=== PATIENT | female | born 1955 | race Caucasian/White ===

== ENCOUNTER 2020-10-19 07:00 | Inpatient (IN) | payer MEDICARE ==
[~2020-10-19] VITALS: Ht 162.6 cm; Wt 73.8 kg
[2021-01-14 15:23] LABS: Basophils # (auto) 0.1 10 ^3/uL (0-0.2); Basophils % (auto) 1.2 % (0.0-2.0); Eosinophils # (auto) 0.2 10 ^3/uL (0-0.8); Eosinophils % (auto) 3.1 % (0.0-7.0); Hematocrit 46.8 % (36.0-46.0); Hemoglobin 15.8 g/dL (12.2-16.2); Lymphocytes # (auto) 1.5 10 ^3/uL (0.4-5.4); Lymphocytes % (auto) 30.8 % (10.0-50.0); Mean Corpuscular Hemoglobin 31.5 pg (28.0-32.0); Mean Corpuscular Hgb Conc. 33.7 g/dL (32.0-36.0); Mean Corpuscular Volume 93.7 fL (80.0-100.0); Monocytes # (auto) 0.4 10 ^3/uL (0-1.3); Monocytes % (auto) 8.1 % (0.0-12.0); Neutrophils # (auto) 2.8 10 ^3/uL (1.6-8.6); Neutrophils % (auto) 56.8 % (37.0-80.0); Platelet Count (auto) 233 10^3/uL (140-450); Red Cell Distribution Width 13.1 % (11.8-14.3)
[2021-01-14 15:40] LABS: Urine Bacteria MOD /hpf (None Seen); Urine Blood 1+ /uL (Negative); Urine Specific Gravity 1.007 (1.001-1.035); Urine WBC 2 /hpf (0 - 5)
[2021-01-14 16:05] LABS: Albumin 3.7 g/dL (3.4-5.0); Calcium 8.7 mg/dL (8.5-10.1); Potassium 4.4 mmol/L (3.5-5.1)
[2021-01-14 16:08] LABS: BUN/Creatinine Ratio 30.8; Bilirubin, Total 0.4 mg/dL (0.2-1.0); Total Protein 7.6 g/dL (6.4-8.2)
[2021-01-14 17:06] LABS: INR 0.97 (0.9-1.15); Partial Thromboplastin Time 28.8 sec (23.0-31.2)
[2021-01-17] MEDS ORDERED: BACL10TA PO (14:26)
[2021-01-17] MEDS ORDERED: ALBU108A14 IN (14:26)
[2021-01-17] MEDS ORDERED: LEVO88TA4 PO (14:26)
[2021-01-17] MEDS ORDERED: ESTR1TAB3 PO (14:26)
[2021-01-17] MEDS ORDERED: DULO60CA PO (14:26)
[2021-01-17] MEDS ORDERED: MELO1TAB73 PO (14:26)
[2021-01-17] MEDS ORDERED: HYDR-4072 PO (14:26)
[2021-01-17] MEDS ORDERED: METO-169 PO (14:26)
[2021-01-17] MEDS ORDERED: GABA300C10 PO (14:26)
[2021-01-18] MEDS ORDERED: VANCOMYCIN HCL 1000 MG VL ONE ×2 (06:58→07:22)
[2021-01-18] MEDS ORDERED: ACETAMINOPHEN IV 100 ML IV ONE (06:58)
[2021-01-18] MEDS ORDERED: CELECOXIB 100 MG CAP ONE (06:58)
[2021-01-18] MEDS ORDERED: PREGABALIN CAPSULE 75 MG CAP PO ONE (07:00)
[2021-01-18] MEDS ORDERED: ACETAMINOPHEN IV 1000 MG/100ML (10MG/ML) IV ONE (07:00)
[2021-01-18] MEDS ORDERED: CELECOXIB 100 MG CAP PO ONE (07:00)
[2021-01-18] MEDS ORDERED: PREGABALIN CAPSULE 75 MG CAP ONE (07:16)
[2021-01-18] MEDS ORDERED: MORPHINE SULF(PF) 0.5MG/ML 10ML VIAL ONE (07:20)
[2021-01-18] MEDS ORDERED: KETOROLAC TROMETH 30 MG/ML 1ML VIAL ONE (07:20)
[2021-01-18] MEDS ORDERED: TRANEXAMIC ACID 20 ML ONE (07:21)
[2021-01-18] MEDS ORDERED: BUPIVACAINE W/ EPINEPH 0.25% INJ 50ML MDV ONE (07:21)
[2021-01-18] MEDS ORDERED: BACITRACIN INJ 50000 UNIT VIAL ONE (07:23)
[2021-01-18] MEDS ORDERED: fentaNYL CITRATE 5 ML ONE (07:27)
[2021-01-18] MEDS ORDERED: MIDAZOLAM HCL 1MG/1ML-2 ML VIAL ONE (07:27)
[2021-01-18] MEDS ORDERED: ROCURONIUM 10MG/ML 10ML VIAL IV ONE (07:28)
[2021-01-18] MEDS ORDERED: PROPOFOL 10 MG/ML 20 ML IV ONE (07:43)
[2021-01-18] MEDS ORDERED: ePHEDrine SULFATE 50 MG/ML AMP IV ONE (07:43)
[2021-01-18] MEDS ORDERED: GLYCOPYRROLATE 0.2 MG/ML 1ML VIAL IV ONE (07:43)
[2021-01-18] MEDS ORDERED: NEOSTIGMINE 1 MG/ML INJ (10mg/10ML VIAL) IV ONE (07:43)
[2021-01-18] MEDS ORDERED: LIDOCAINE 2% (LOCAL ANESTH.) PF 5ml SDV ONE (09:06)
[2021-01-18] MEDS ORDERED: SUCCINYLCHOLINE CHLORIDE 20 MG/ML 10ML VIAL IV ONE (09:38)
[2021-01-18] MEDS: LACTATED RINGER'S 1,000 ML IV SCH ×2 (11:45→21:18)
[2021-01-18] MEDS ORDERED: ALBUTEROL IN PRN (11:45)
[2021-01-18] MEDS ORDERED: NITROGLYCERIN 0.4 MG SL TAB SL PRN (11:45)
[2021-01-18] MEDS ORDERED: MORPHINE SULF INJ 2 MG/ML SYRINGE 1ML IV PRN (11:45)
[2021-01-18] MEDS ORDERED: HYDROmorphone HCL 2 MG/ML VL IV PRN ×2 (11:45)
[2021-01-18] MEDS ORDERED: ONDANSETRON HCL 4 MG/2 ML VIAL IV PRN (11:45)
[2021-01-18] MEDS ORDERED: HYDROmorphone HCL 2 MG/ML VL ONE (11:48)
[2021-01-18] MEDS ORDERED: HYDROmorphone HCL 2 MG/ML VL IV ONE (11:49)
[2021-01-18 13:00] VITALS: BP 126/64
[2021-01-18] MEDS: SODIUM CHLOR 0.9% PF (SALINE LOCK) 10ML VIAL/SYR IV SCH ×2 (13:28→21:19)
[2021-01-18] MEDS: GABAPENTIN 300 MG CAP PO SCH ×2 (13:31→21:19)
[2021-01-18 13:54] VITALS: BP 126/64
[2021-01-18] MEDS ORDERED: HYDROcodone-ACET 10/325MG TAB PO SCH (14:00)
[2021-01-18 14:26] LABS: Albumin 2.9 g/dL (3.4-5.0); Calcium 8.3 mg/dL (8.5-10.1); Potassium 5.3 mmol/L (3.5-5.1)
[2021-01-18 14:29] LABS: BUN/Creatinine Ratio 23.4; Bilirubin, Total 0.4 mg/dL (0.2-1.0)
[2021-01-18 16:28] VITALS: BP 121/68
[2021-01-18] MEDS ORDERED: BACLOFEN 10 MG TAB PO SCH (17:30)
[2021-01-18] MEDS: Meloxicam 7.5 MG TAB PO SCH (17:32)
[2021-01-18] MEDS ORDERED: METOPROLOL SUCCINATE XL 50 MG TAB PO SCH (18:00)
[2021-01-18] MEDS ORDERED: DULoxetine HCL 30 MG CAP PO SCH (18:00)
[2021-01-18] MEDS ORDERED: HYDROcodone-ACET 10/325MG TAB PO PRN (18:00)
[2021-01-18] MEDS ORDERED: VANCOMYCIN 500 MG in D5W 5% 100 ML IV SCH (22:00)
[2021-01-18 22:38] VITALS: BP 101/71
[2021-01-19 05:09] VITALS: BP 101/55
[2021-01-19 05:17] VITALS: BP 101/55
[2021-01-19 05:46] LABS: Basophils # (auto) 0 10 ^3/uL (0-0.2); Basophils % (auto) 0.3 % (0.0-2.0); Eosinophils # (auto) 0.1 10 ^3/uL (0-0.8); Eosinophils % (auto) 1.1 % (0.0-7.0); Hematocrit 37.7 % (36.0-46.0); Lymphocytes # (auto) 1.2 10 ^3/uL (0.4-5.4); Lymphocytes % (auto) 17.7 % (10.0-50.0); Mean Corpuscular Hemoglobin 32.2 pg (28.0-32.0); Mean Corpuscular Hgb Conc. 34.4 g/dL (32.0-36.0); Mean Corpuscular Volume 93.6 fL (80.0-100.0); Monocytes # (auto) 0.6 10 ^3/uL (0-1.3); Monocytes % (auto) 9.4 % (0.0-12.0); Neutrophils # (auto) 4.9 10 ^3/uL (1.6-8.6); Neutrophils % (auto) 71.5 % (37.0-80.0); Platelet Count (auto) 169 10^3/uL (140-450); Red Blood Cells 4.03 10^6/uL (4.0-5.20); Red Cell Distribution Width 13.2 % (11.8-14.3); White Blood Cell 6.8 10^3/uL (4.4-10.8)
[2021-01-19 06:04] LABS: Potassium 4.2 mmol/L (3.5-5.1)
[2021-01-19] MEDS: GABAPENTIN 300 MG CAP PO SCH (06:06)
[2021-01-19] MEDS: SODIUM CHLOR 0.9% PF (SALINE LOCK) 10ML VIAL/SYR IV SCH (06:06)
[2021-01-19 06:08] LABS: BUN/Creatinine Ratio 31.5; Calcium 7.8 mg/dL (8.5-10.1)
[2021-01-19] MEDS ORDERED: ESTRADIOL 1 MG TAB PO SCH (07:00)
[2021-01-19] MEDS ORDERED: LEVOTHYROXINE SODIUM 88 MCG TAB PO SCH (07:00)
[2021-01-19] MEDS: LACTATED RINGER'S 1,000 ML IV SCH (07:45)
[2021-01-19 08:00] VITALS: BP 100/56
[2021-01-19] MEDS: Meloxicam 7.5 MG TAB PO SCH (08:00)
[2021-01-19] MEDS ORDERED: BACLOFEN 10 MG TAB PO SCH (08:00)
[2021-01-19] MEDS ORDERED: ceFAZolin 1GM/50ML 50 ML IV ONE (09:45)
[2021-01-19 11:08] VITALS: BP 126/63
== END 2021-01-19 12:30 | disposition home or self-care (01) | DRG 483 ==
LOC: EDSTATUS 07:00 → OVERFLOW 01-18 06:16 → TELE-WESTW 01-18 12:33
PROVIDERS: ADMIT Orthopaedic Surgery Sports Medicine; ATTEND Orthopaedic Surgery Sports Medicine
PROC: 0RRK00Z Replacement of Left Shoulder Joint with Reverse Ball and Socket Synthetic Substitute, Open Approach (ICD-10-PCS; principal; 2021-01-18 07:43)
DX: M19.012 Primary osteoarthritis, left shoulder (principal); Z20.822 Contact with and (suspected) exposure to COVID-19; Z88.0 Allergy status to penicillin; Z88.8 Allergy status to other drugs, medicaments and biological substances
CPT/HCPCS: 36415; 73020; 80048; 80053; 81001; 85025; 85610; 85730; 86850; 86900; 86901; A4565; G0378; J0131; J0330; J0690; J1885; J2001; J2250; J2704; J7060

== ENCOUNTER → 2023-05-29 | Day surgery (SDC) | payer MEDICARE ==
[2023-05-24 09:28] LABS: Basophils # (auto) 0.1 10 ^3/uL (0-0.2); Eosinophils # (auto) 0.3 10 ^3/uL (0-0.8); Eosinophils % (auto) 4.7 % (0.0-7.0); Hematocrit 49.7 % (36.0-46.0); Hemoglobin 16.4 g/dL (12.2-16.2); Lymphocytes # (auto) 1.4 10 ^3/uL (0.4-5.4); Lymphocytes % (auto) 21.1 % (10.0-50.0); Mean Corpuscular Hemoglobin 30.9 pg (28.0-32.0); Mean Corpuscular Volume 93.7 fL (80.0-100.0); Monocytes # (auto) 0.5 10 ^3/uL (0-1.3); Monocytes % (auto) 7.1 % (0.0-12.0); Neutrophils # (auto) 4.3 10 ^3/uL (1.6-8.6); Neutrophils % (auto) 66.1 % (37.0-80.0); Red Cell Distribution Width 13.3 % (11.8-14.3); White Blood Cell 6.5 10^3/uL (4.4-10.8)
[2023-05-24 09:35] LABS: Urine Bacteria MOD /hpf (None Seen); Urine Blood 1+ /uL (Negative); Urine Mucus FEW (None Seen); Urine Specific Gravity 1.038 (1.001-1.035); Urine WBC 3 /hpf (0 - 5)
[2023-05-24 09:44] LABS: INR 1.02 (0.9-1.15); Partial Thromboplastin Time 29.5 SEC (24.5-34.5)
[2023-05-24 10:06] LABS: Albumin 3.7 g/dL (3.4-5.0); BUN/Creatinine Ratio 25.3 (10.0-20.0); Bilirubin, Total 0.4 mg/dL (0.2-1.0); Calcium 9.4 mg/dL (8.5-10.1); Total Protein 7.4 g/dL (6.4-8.2)
[~2023-05-29] VITALS: Ht 162.6 cm; Wt 80.3 kg
[~2023-05-29] MED LIST: ALBU108A14 IN; BACL10TA PO; BUPIVACAINE HCL 50 ML ONE; DULO60CA41 PO; ESTR0.5T6 PO; HYDR-4072 PO; HYDROmorphone HCL 2 MG/ML VL/or syr IV PRN; LEVO88TA4 PO; LIDOCAINE 2% (LOCAL ANESTH.) PF 5ml SDV ONE; MELO7.5T7 PO; METO-289 PO; MIDAZOLAM HCL 2MG/2ML 2ml VIAL (1mg/ml) ONE; ONDANSETRON HCL 4 MG/2 ML VIAL IV PRN; ONDANSETRON HCL 4 MG/2 ML VIAL ONE; PROPOFOL 10 MG/ML 20 ML IV ONE; ROCURONIUM 10MG/ML 10ML VIAL IV ONE; VANCOMYCIN HCL 1000 MG VL ONE; ceFAZolin 1GM/50ML 100 ML IV ONE; fentaNYL CITRATE 100 MCG/2 ML VL ONE
[2023-05-29 13:20] VITALS: RESP 11; TEMP 97.7; O2SAT 99
[2023-05-29 14:29] VITALS: BP 130/55; PULSE 61; RESP 13; O2SAT 94
== END | disposition home or self-care (01) ==
LOC: SUR 09:33
PROVIDERS: ATTEND Orthopaedic Surgery Sports Medicine
DX: G56.21 Lesion of ulnar nerve, right upper limb (principal); J45.909 Unspecified asthma, uncomplicated; E03.9 Hypothyroidism, unspecified; I49.9 Cardiac arrhythmia, unspecified; Z79.51 Long term (current) use of inhaled steroids; Z88.0 Allergy status to penicillin; Z88.1 Allergy status to other antibiotic agents; Z82.61 Family history of arthritis; Z82.5 Family history of asthma and other chronic lower respiratory diseases; Z83.42 Family history of familial hypercholesterolemia; Z95.0 Presence of cardiac pacemaker; Z82.49 Family history of ischemic heart disease and other diseases of the circulatory system; Z79.890 Hormone replacement therapy; Z87.891 Personal history of nicotine dependence; Z90.710 Acquired absence of both cervix and uterus; Z98.890 Other specified postprocedural states
CPT/HCPCS: 36415; 64718; 80053; 81001; 85025; 85610; 85730; J0690; J1170; J2001; J2250; J2405; J2704; J3010; J3370; J3490

== ENCOUNTER 2023-07-31 06:11 | Inpatient (IN) | payer MEDICARE ==
[2023-07-26 08:49] LABS: Basophils # (auto) 0 10 ^3/uL (0-0.2); Basophils % (auto) 0.9 % (0.0-2.0); Eosinophils # (auto) 0.2 10 ^3/uL (0-0.8); Eosinophils % (auto) 3.2 % (0.0-7.0); Hematocrit 46.5 % (36.0-46.0); Hemoglobin 15.9 g/dL (12.2-16.2); Lymphocytes # (auto) 1.2 10 ^3/uL (0.4-5.4); Lymphocytes % (auto) 21.2 % (10.0-50.0); Mean Corpuscular Hemoglobin 31.5 pg (28.0-32.0); Mean Corpuscular Hgb Conc. 34.2 g/dL (32.0-36.0); Mean Corpuscular Volume 92.1 fL (80.0-100.0); Monocytes # (auto) 0.4 10 ^3/uL (0-1.3); Monocytes % (auto) 6.8 % (0.0-12.0); Neutrophils # (auto) 3.7 10 ^3/uL (1.6-8.6); Neutrophils % (auto) 67.9 % (37.0-80.0); Nucleated Red Blood Cells % 0.1 %; Red Blood Cells 5.05 10^6/uL (4.0-5.20); Red Cell Distribution Width 13.6 % (11.8-14.3); White Blood Cell 5.5 10^3/uL (4.4-10.8)
[2023-07-26 09:05] LABS: INR 1.01 (0.9-1.15); Partial Thromboplastin Time 29.5 SEC (24.5-34.5); Prothrombin Time 10.6 sec (9.3-11.8)
[2023-07-26 09:15] LABS: Urine Bacteria FEW /hpf (None Seen); Urine Blood 1+ /uL (Negative); Urine Clarity HAZY (Clear); Urine Color Yellow (Yellow); Urine Hyaline Cast FEW /lpf (0 - 2); Urine Mucus FEW (None Seen); Urine Protein, UAD 1+ (Negative); Urine Specific Gravity 1.037 (1.001-1.035); Urine WBC 5 /hpf (0 - 5)
[2023-07-26 09:58] LABS: Alanine Aminotransferase 11 U/L (7-40); Albumin 4.2 g/dL (3.2-4.8); Alkaline Phosphatase 68 U/L (46-116); Anion Gap 0 (5-15); Aspartate Aminotransferase 13 U/L (13-40); Calcium 9.1 mg/dL (8.5-10.1); Carbon Dioxide 35 mmol/L (20-30); Chloride 102 mmol/L (98-107); Glucose 88 mg/dL (74-106); Potassium 4.8 mmol/L (3.5-5.1); Sodium 137 mmol/L (136-145)
[2023-07-26 09:59] LABS: BUN/Creatinine Ratio 18.8 (10.0-20.0); Blood Urea Nitrogen 13 mg/dL (9-23); Total Protein 6.7 g/dL (5.7-8.2)
[2023-07-26 10:01] LABS: Bilirubin, Total 0.4 mg/dL (0.2-1.0)
[2023-07-31] VITALS (10 sets, daily range): BP systolic 117–142; BP diastolic 64–79; PULSE 62–77; RESP 12–20; TEMP 96.5–98.2; O2SAT 93–99
[~2023-07-31] VITALS: Ht 162.6 cm; Wt 85.0 kg
[~2023-07-31 06:11] MED LIST changes: -BUPIVACAINE HCL 50 ML ONE; +GABA-1250 PO; -HYDROmorphone HCL 2 MG/ML VL/or syr IV PRN; -LIDOCAINE 2% (LOCAL ANESTH.) PF 5ml SDV ONE; -MIDAZOLAM HCL 2MG/2ML 2ml VIAL (1mg/ml) ONE; -ONDANSETRON HCL 4 MG/2 ML VIAL IV PRN; -ONDANSETRON HCL 4 MG/2 ML VIAL ONE; -PROPOFOL 10 MG/ML 20 ML IV ONE; -ROCURONIUM 10MG/ML 10ML VIAL IV ONE; -VANCOMYCIN HCL 1000 MG VL ONE; -ceFAZolin 1GM/50ML 100 ML IV ONE; -fentaNYL CITRATE 100 MCG/2 ML VL ONE
[2023-07-31] MEDS ORDERED: DexAMETHasone SOD PHOS 4 MG/1ML SDV INJ ONE (06:35)
[2023-07-31] MEDS ORDERED: EPINEPHrine HCL 1 MG/1 ML AMP ONE (06:35)
[2023-07-31] MEDS ORDERED: BUPIVACAINE HCL 50 ML ONE (06:35)
[2023-07-31] MEDS ORDERED: BUPIVACAINE 0.25% INJ 50ML VIAL ONE (06:35)
[2023-07-31] MEDS ORDERED: KETOROLAC TROMETH 30 MG/ML 1ML VIAL ONE (06:48)
[2023-07-31] MEDS ORDERED: LIDOCAINE 2% (LOCAL ANESTH.) PF 5ml SDV ONE (06:48)
[2023-07-31] MEDS ORDERED: DexAMETHasone SOD PHOS 10MG/1ML VIAL INJ ONE (06:48)
[2023-07-31] MEDS ORDERED: ROCURONIUM 10MG/ML 10ML VIAL IV ONE (06:48)
[2023-07-31] MEDS ORDERED: ONDANSETRON HCL 4 MG/2 ML VIAL ONE (06:48)
[2023-07-31] MEDS ORDERED: PROPOFOL 10 MG/ML 20 ML IV ONE (06:48)
[2023-07-31] MEDS ORDERED: GLYCOPYRROLATE 0.2 MG/ML 1ML VIAL ONE (06:48)
[2023-07-31] MEDS ORDERED: LIDOCAINE 1% (LOCAL ANESTH.) PF 5ml SDV ONE (06:49)
[2023-07-31] MEDS ORDERED: SUGAMMADEX 200mg/2ml Vial (100MG/ML) IV ONE (06:50)
[2023-07-31] MEDS ORDERED: fentaNYL CITRATE 100 MCG/2 ML VL ONE (06:50)
[2023-07-31] MEDS ORDERED: VANCOMYCIN HCL 1000 MG VL ONE (06:58)
[2023-07-31] MEDS ORDERED: GABAPENTIN 400 MG CAP PO ONE (07:00)
[2023-07-31] MEDS ORDERED: CELECOXIB 100 MG CAP PO ONE (07:00)
[2023-07-31] MEDS ORDERED: ACETAMINOPHEN IV 1000 MG/100ML (10MG/ML) IV ONE (07:00)
[2023-07-31] MEDS ORDERED: CLINDAMYCIN 600MG IV 50 ML IV ONE (07:11)
[2023-07-31] MEDS ORDERED: LIDOCAINE 2% JELLY 11ml (GLYDO) ONE (07:27)
[2023-07-31] MEDS ORDERED: TRANEXAMIC ACID 20 ML ONE (07:51)
[2023-07-31] MEDS ORDERED: PHENYLEPHRINE HCL 10 MG/ML VL ONE (08:15)
[2023-07-31] MEDS ORDERED: SODIUM CHLORIDE LOCK 10 ML ONE (08:15)
[2023-07-31] MEDS ORDERED: CLINDAMYCIN 300MG IV 50 ML IV ONE (08:30)
[2023-07-31] MEDS ORDERED: ACETAMINOPHEN 325 MG TAB PO PRN (10:30)
[2023-07-31] MEDS ORDERED: NITROGLYCERIN 0.4 MG SL TAB SL PRN (10:30)
[2023-07-31] MEDS ORDERED: HYDROcodone-ACET 10/325MG TAB PO PRN (10:30)
[2023-07-31] MEDS ORDERED: ONDANSETRON HCL 4 MG/2 ML VIAL IV PRN ×2 (10:30→11:15)
[2023-07-31] MEDS ORDERED: MORPHINE SULFATE INJ 2 MG/ml SYRG IV PRN (10:30)
[2023-07-31] MEDS ORDERED: HYDROmorphone HCL 2 MG/ML VL/or syr IV PRN ×2 (10:30→11:15)
[2023-07-31] MEDS ORDERED: LACTATED RINGER'S 1,000 ML IV SCH (10:30)
[2023-07-31] MEDS ORDERED: ALBUTEROL SULFATE 108 MCG IN SCH (10:30)
[2023-07-31] MEDS ORDERED: ALBUTEROL SULF 2.5 MG/0.5ML(0.5%) NEB SOLN NEB PRN (10:45)
[2023-07-31] MEDS ORDERED: FLUMAZENIL 0.1 MG/ML INJ 10ML MDV IV PRN (11:15)
[2023-07-31] MEDS ORDERED: NALOXONE HCL 0.4 MG/ML VIAL IV PRN (11:15)
[2023-07-31] MEDS ORDERED: fentaNYL CITRATE 100 MCG/2 ML VL IV PRN (11:15)
[2023-07-31] MEDS ORDERED: LABETALOL HCL 5 MG/ML 4ML SYRINGE IV PRN (11:15)
[2023-07-31] MEDS ORDERED: oxyCODONE HCL 5MG TAB PO PRN (11:15)
[2023-07-31] MEDS ORDERED: hydrALAZINE HCL 20 MG/ML VL IV PRN (11:15)
[2023-07-31] MEDS ORDERED: ePHEDrine SULFATE 50 MG/ML AMP IV PRN (11:15)
[2023-07-31 13:43] LABS: Anion Gap 3 (5-15); Calcium 8.9 mg/dL (8.7-10.4); Carbon Dioxide 31 mmol/L (20-30); Chloride 104 mmol/L (98-107); Potassium 4.6 mmol/L (3.5-5.1); Sodium 138 mmol/L (136-145)
[2023-07-31 13:49] LABS: BUN/Creatinine Ratio 18.4 (10.0-20.0); Blood Urea Nitrogen 14 mg/dL (9-23); Glucose 148 mg/dL (74-106)
[2023-07-31] MEDS: CLINDAMYCIN 600MG IV 50 ML IV SCH ×2 (14:42→18:19)
[2023-07-31] MEDS ORDERED: PATIENTS OWN MEDICATION (Duloxetine Hcl (Cymbalta) 1 CAP) PO SCH (18:00)
[2023-07-31] MEDS ORDERED: METOPROLOL SUCCINATE XL 50 MG TAB PO SCH (18:00)
[2023-07-31] MEDS: BACLOFEN 10 MG TAB PO SCH (18:19)
[2023-07-31] MEDS ORDERED: GABAPENTIN 300 MG CAP PO SCH (22:00)
[2023-07-31] MEDS ORDERED: DULoxetine HCL 30 MG CAP PO SCH (22:00)
[2023-07-31] MEDS: DOCUSATE SOD 100 MG CAP PO SCH (22:35)
[2023-08-01] VITALS (7 sets, daily range): BP systolic 107–137; BP diastolic 51–80; PULSE 60–83; RESP 18–20; TEMP 98–98.7; O2SAT 92–96
[2023-08-01] MEDS: CLINDAMYCIN 600MG IV 50 ML IV SCH (00:38)
[2023-08-01 06:32] LABS: Alanine Aminotransferase 13 U/L (7-40); Albumin 4.2 g/dL (3.2-4.8); Alkaline Phosphatase 57 U/L (46-116); Anion Gap 3 (5-15); Aspartate Aminotransferase 16 U/L (13-40); BUN/Creatinine Ratio 33.3 (10.0-20.0); Blood Urea Nitrogen 19 mg/dL (9-23); Calcium 8.7 mg/dL (8.7-10.4); Carbon Dioxide 30 mmol/L (20-30); Chloride 104 mmol/L (98-107); Glucose 120 mg/dL (74-106); Potassium 4.3 mmol/L (3.5-5.1); Sodium 137 mmol/L (136-145)
[2023-08-01 06:33] LABS: Bilirubin, Total 0.4 mg/dL (0.2-1.0); Total Protein 6.1 g/dL (5.7-8.2)
[2023-08-01] MEDS ORDERED: LEVOTHYROXINE SODIUM 88 MCG TAB PO SCH (07:00)
[2023-08-01] MEDS: BACLOFEN 10 MG TAB PO SCH (09:53)
[2023-08-01] MEDS: DOCUSATE SOD 100 MG CAP PO SCH (09:53)
[2023-08-01] MEDS ORDERED: ESTRADIOL 1 MG TAB PO SCH (10:00)
== END 2023-08-01 16:30 | disposition home or self-care (01) | DRG 483 ==
LOC: SUR 06:11 → OVERFLOW 10:26 → CENTRAL 12:31
PROVIDERS: ADMIT Orthopaedic Surgery Sports Medicine; ATTEND Orthopaedic Surgery Sports Medicine
PROC: 0RRJ00Z Replacement of Right Shoulder Joint with Reverse Ball and Socket Synthetic Substitute, Open Approach (ICD-10-PCS; principal; 2023-07-31 07:31)
DX: M19.011 Primary osteoarthritis, right shoulder (principal); Z88.8 Allergy status to other drugs, medicaments and biological substances; Z88.0 Allergy status to penicillin; J45.909 Unspecified asthma, uncomplicated; Z95.0 Presence of cardiac pacemaker; R55 Syncope and collapse
CPT/HCPCS: 36415; 73020; 80048; 80053; 81001; 85025; 85610; 85730; 86850; 86900; 86901; 94640; 97110; 97116; 97163; G0378; J0131; J0171; J1100; J1885; J2001; J2405; J2704; J3490